=== PATIENT | female | born 1940 | race Caucasian/White ===

== ENCOUNTER → 2016-06-23 | Outpatient (CLI) | payer MEDICARE, BC | END | disposition home or self-care (01) | LOC: GMAJ 14:14 | PROVIDERS: ATTEND Family Medicine | DX: E53.8 Deficiency of other specified B group vitamins (principal) ==

== ENCOUNTER → 2016-06-26 | Outpatient (CLI) | payer MEDICARE, BC ==
--- NOTE | 2016-06-26 10:33 | CT ---
EXAM DESCRIPTION: Chest w/Contrast CLINICAL HISTORY: COPD COMPARISON: None. TECHNIQUE: Post IV contrasted multidetector CT imaging of the chest. Multiplanar reconstructions were provided. FINDINGS: Lungs and large airways: No evidence of mass, pulmonary nodule or emphysema on today's study. No interstitial lung disease noted. Pleura: Normal. No pleural effusion or thickening. Heart and pericardium: Heart size is normal. No pericardial effusion. Mediastium and brian: Normal. No lymphadenopathy by CT size criteria. Chest wall and lower neck: No significant finding. Vessels: There is evidence of atherosclerotic disease noted. The main pulmonary artery is prominent, but only measures 2.8 cm in diameter which is not considered enlarged. The ascending aorta measures 3.2 cm in diameter. Atherosclerotic disease is noted. The origins of the three great vessels demonstrate no evidence of significant narrowing. Bones: Osteopenia with multilevel fusion and vertebroplasty. Old healed sternal fracture. IMPRESSION: Today's exam demonstrates coronary artery disease. No evidence of emphysema or interstitial lung disease on today's study. Electronically signed by: Arnoldo Li MD 06/26/2016 10:32 AM [employer]
== END | disposition home or self-care (01) ==
LOC: CT 09:20
PROVIDERS: ATTEND Family Medicine
DX: J44.9 Chronic obstructive pulmonary disease, unspecified (principal)

== ENCOUNTER → 2016-11-19 | Outpatient (CLI) | payer MEDICARE, BC | LOC: GMA 16:42 | PROVIDERS: ATTEND Nurse Practitioner Family | DX: L03.90 Cellulitis, unspecified (principal) ==

== ENCOUNTER → 2016-11-23 | Outpatient (CLI) | payer MEDICARE, BC ==
--- NOTE | 2016-11-24 14:24 | MRI ---
EXAM DESCRIPTION: Cervical Spine CLINICAL HISTORY: CERVICAL MYELOPATHY neck pain and neck stiffness with cervical disorder with myelopathy COMPARISON: None Available. TECHNIQUE: MRI of the cervical spine is performed according to our usual protocol. FINDINGS: Reversal of the normal cervical lordosis centered at the C5-6 level is present with diffuse disc desiccation and mild modest disc space narrowing at this level and C6-7. The foramen magnum and craniocervical junction is unremarkable except for hypertrophic soft tissue degenerative changes surrounding the odontoid without evidence of stenosis at the foramen magnum. No evidence of brainstem or cervical cord mass or gliosis or syrinx is seen. Multilevel disc bulges are present, most prominent at C3-4, C4-5, and C5-6 with less prominent changes at C6-7 and C7-T1. Endplate reactive changes are present without evidence of a bony destructive process. No prevertebral or paraspinous masses or fluid collections are noted. No aggressive bony destruction is seen. C2-3: Disc desiccation with mild symmetric annular bulge and adequate spinal canal and left neural foramen with moderate narrowing of the right neural foramen from facet disease and uncinate process hypertrophy. C3-4: Symmetric mild annular bulge without lateralizing disc herniation with moderate bilateral foraminal stenosis and right greater than left facet arthropathy. C4-5: Disc desiccation with broad-based annular bulge, minimally more prominent on the left with moderate bilateral foraminal stenosis multifactoral including a annular bulge and right greater than left facet arthropathy and uncinate process hypertrophy. C5-6: Disc desiccation and narrowing with broad-based annular bulge and/or osteophyte complex with bilateral foraminal narrowing and borderline multifactoral stenosis with only mild symmetric facet arthropathy. No lateralizing herniation. C6-7: Degenerative disc narrowing and desiccation is present with broad-based mild bulge of the disc osteophyte complex with bilateral right slightly worse than left foraminal narrowing from uncinate process hypertrophy and mild facet arthropathy. The changes are very slightly more prominent on the right with slightly greater effacement of the right lateral recess than left. C7-T1: Disc desiccation and mild annular prominence with adequate spinal canal and bilateral moderate foraminal narrowing with mild facet arthropathy. IMPRESSION: 1. Multilevel disc degeneration and desiccation with multilevel annular bulges with adequate spinal canal throughout with reversal of normal lordosis centered at C5-6. 2. Diffuse foraminal stenosis on a multifactorial basis with relative sparing of the left C2-3 neural foramen and moderate involvement at the other levels bilaterally. 3. Adequate central canal throughout with borderline lower limits of normal canal size at C5-6. 4. Mild disc prominence to the left of midline at C4-5 and very slight a right far lateral uncinate process and/or disc prominence at C6-7 with the other levels demonstrating symmetric annular bulges. Electronically signed by: Shakeel Weinstein MD 11/24/2016 2:23 PM CDT
== END ==
LOC: MRI 11:22
PROVIDERS: ATTEND Psychiatry & Neurology Neurology
DX: M50.03 Cervical disc disorder with myelopathy, cervicothoracic region (principal); G80.3 Athetoid cerebral palsy; G61.81 Chronic inflammatory demyelinating polyneuritis; G93.2 Benign intracranial hypertension; J44.9 Chronic obstructive pulmonary disease, unspecified; M54.16 Radiculopathy, lumbar region; E11.40 Type 2 diabetes mellitus with diabetic neuropathy, unspecified

== ENCOUNTER → 2017-06-18 | Outpatient (CLI) | payer MEDICARE, BC ==
--- NOTE | 2017-06-18 15:05 | MRI ---
EXAM DESCRIPTION: Brain w/oContrast CLINICAL HISTORY: ATAXIC GAIT COMPARISON: Previous study March 02, 2016 TECHNIQUE: Non contrast MRI of the brain is performed according to our usual protocol including multiplanar multi sequence technique. FINDINGS: Sagittal T1 images show prominent gyral and sulcal fold pattern. Intact corpus callosum with normal pituitary gland. Normal T1 appearance of the vishnu and medulla and upper cervical cord. ADC mapping is negative. Diffusion-weighted imaging is negative for focal hyperintense brain parenchymal signal abnormality to suggest restricted diffusion. Axial fat sat T2 images show preservation of flow voids within the intracranial vessels. The globes appear intact. Mucosal thickening and frothy fluid is seen in the left sphenoid sinus consistent with sphenoid sinusitis. Other paranasal sinuses appear clear. No abnormal fluid signal is seen in the region of the tympanic cavities. However there is fluid signal in the mastoid regions consistent with mastoid effusions. Symmetrical internal auditory canals. T2 hyperintensities are seen in the vishnu and in the cerebral white matter with multifocal increased signal intensity in the basal ganglia consistent with old lacunar infarcts. Confluent microvascular ischemic changes are seen in the cerebral white matter bilaterally likely related to aging, diabetes or hypertension. Axial FLAIR images show white matter disease and old basal ganglial lacunes. Axial T1 images are negative for high signal intensity hemorrhagic lesion of the brain. No subdural hematoma. Generalized age-related cerebral volume loss is noted. Ventricles and sulci are prominent. Susceptibility weighted images are negative for evidence of old hemorrhage or pathologic brain parenchymal calcification. Incidental signal loss consistent with basal ganglial calcification is not unexpected for age. Compared to the previous study March 02, 2016, no change is evident. IMPRESSION: No acute intracranial pathologic process. Sphenoid sinusitis. Senescent brain with generalized cerebral and cerebellar atrophy. Extensive cerebral hemispheric chronic white matter ischemic changes. Old lacunar infarcts in the basal ganglia and vishnu. Electronically signed by: Lucius Chakraborty MD 06/18/2017 3:04 PM [facility]
== END ==
LOC: MRI 12:57
PROVIDERS: ATTEND Family Medicine
DX: R26.0 Ataxic gait (principal); J32.3 Chronic sphenoidal sinusitis

== ENCOUNTER → 2017-07-15 | Outpatient (CLI) | payer MEDICARE, BC ==
--- NOTE | 2017-07-15 17:34 | RAD ---
EXAM DESCRIPTION: Ankle,Left 3 Views CLINICAL HISTORY: 76 years, Female, PAIN IN LEFT ANKLE AND JOINTS OF LEFT FOOT COMPARISON: June 25, 2014 TECHNIQUE: AP/lateral/oblique of the ankle FINDINGS: Previous remote internal fixation of the medial malleolus with two screws and a side plate along the distal fibular and lateral malleolus is unchanged from prior study with the ankle mortise well-maintained. Mild degenerative changes in the region of the posterior malleolus on the lateral view are noted. No recurrent fracture or evidence of hardware failure is evident. IMPRESSION: 1. No acute abnormality of the left ankle. Electronically signed by: Shakeel Weinstein MD 07/15/2017 5:32 PM CDT
== END ==
LOC: RAD 07:56
PROVIDERS: ATTEND Orthopaedic Surgery
DX: M25.572 Pain in left ankle and joints of left foot (principal)

== ENCOUNTER → 2017-10-14 | Outpatient (CLI) | payer MEDICARE, BC | LOC: GMAJ 12:48 | PROVIDERS: ATTEND Family Medicine | DX: E53.8 Deficiency of other specified B group vitamins (principal) ==

== ENCOUNTER → 2018-06-03 | Outpatient (CLI) | payer MEDICARE, BC | LOC: GMAJ 13:12 | PROVIDERS: ATTEND Family Medicine | DX: E53.8 Deficiency of other specified B group vitamins (principal) ==

== ENCOUNTER → 2018-06-10 | Outpatient (CLI) | payer MEDICARE, BC ==
--- NOTE | 2018-06-12 15:45 | CT ---
Procedure: CT LUNG SCREENING Exam Date: 06/10/2018. Ordering Provider: Edwar Souza Clinical Indication: HISTORY OF TOBACCO. Current smoker. 20 pack years. This patient meets eligibility criteria for low-dose CT lung cancer screening. Comparison: Chest CT scan with contrast standard radiation dose 06/26/2016. Technique: Using a multislice scanner, sequential helical axial imaging was obtained in the thorax, 2.5 mm thickness, 2.5 mm separation, from the level of the thoracic inlet through the lung bases without IV contrast. A low dose protocol was utilized: CTDI: 1.75 mGy. 120. kVp. 45 mA. DLP: 62.73 mGy centimeters. 2D sagittal and coronal reconstructed images, 6.0 mm thickness, were obtained. This exam was performed according to our departmental dose optimization program which includes use of automated exposure control, adjustment of the mA and/or kV according to patient size and/or use of iterative reconstruction technique. Nodule measurements under 10 mm are given as mean value of 3 axes diameters. FINDINGS: Lungs and large airways: Small blebs in the upper lobes bilaterally. Stable 3 mm calcification right middle lobe. Bilateral perihilar calcifications. Bilateral pleural parenchymal scarring in the inferior right middle lobe and inferior lingula. No abnormal nodules or masses. No focal infiltrates. Pleura and space: 3 mm pleural-based nodule posterior right upper lobe. Bilateral focal pleural thickening. No effusion or pneumothorax bilaterally. Mediastinum and brian: evaluation limited by low dose technique and lack of IV contrast. No markedly enlarged lymph nodes or soft tissue masses. Heart and great vessels: Atherosclerotic calcification in the aortic arch, proximal brachiocephalic vessels, coronary arteries, and descending thoracic aorta. Chest wall, lower neck, axillae: Evaluation also limited by same factors as described above. Unremarkable. Upper abdomen: No free fluid or free air. Atherosclerotic calcification, aorta and branches to the abdominal organs. Gallbladder partially visualized. Osseous structures: Evaluation limited by low dose MIP technique. Previous fracture and deformity of the left posterior 11th rib. Spondylosis mid and lower thoracic spine vertebroplasty or augmentation T12, L1, L2. Bilateral posterior fusion construct T10 and T11. Prior fracture and deformity proximal sternum below the manubrium. Bilateral sternoclavicular arthrosis more on the right. IMPRESSION: 1. Bilateral abnormalities of the lung parenchyma and pleura but no abnormal nodules or masses. No focal infiltrates. Stable since the prior scan. [facility] Best Practice recommendations: Please see below for Lung RADS category and FOLLOW-UP.* *Lung RADS category Category 1 - No nodule or definitely benign nodules (probability of malignancy less than 1%). Follow-up: Continue annual screening with Low Dose Chest CT in 12 months. Electronically signed by: Froy Arias MD 06/12/2018 3:42 PM [facility]
== END ==
LOC: CT 13:08
PROVIDERS: ATTEND Family Medicine
DX: F17.210 Nicotine dependence, cigarettes, uncomplicated (principal); Z87.891 Personal history of nicotine dependence

== ENCOUNTER → 2018-12-28 | Outpatient (CLI) | payer MEDICARE, BC ==
--- NOTE | 2018-12-29 18:09 | RAD ---
EXAM DESCRIPTION: UGI: Rad-Fluoroscopy. CLINICAL HISTORY: NAUSEA WITH VOMITING, UNSPEC COMPARISON: None TECHNIQUE: The patient was unable to swallow the barium pill with water. The patient swallowed gas-producing granules, water, and heavy density barium under fluoroscopic visualization. The images were obtained with the patient standing and horizontal.. Patient drank medium density barium through a straw in the semi-prone position. 65 fluoroscopic cine loop images. 8 static fluoroscopic images. Total fluoroscopy time was 2.7 minutes.. DAP: 15.3 Gy-cm2.. FINDINGS: The swallowing mechanism shows no significant delay or premature filling of the hypopharynx. On the lateral view, there is minimal laryngeal penetration visualized. No aspiration. No coughing. No mass effect. Primary peristaltic wave visualized with secondary contractions distally. No mucosal abnormalities. No mass effect. Delayed opening of the gastroesophageal sphincter with minimal back up of contrast in the distal esophagus. Small sliding hiatal hernia. In the horizontal position, there is spontaneous gastroesophageal reflux. The level of reflux increased into the cervical esophagus with coughing. Evaluation of the stomach limited due to multiple levels of thoracic and lumbar kyphoplasty and posterior fusion hardware. No prominent intrinsic mucosal defect in the stomach, no mass effect. No gastroduodenal obstruction. No intrinsic mucosal defect in the duodenum and no mass effect. IMPRESSION: 1. No delay in swallowing. Minimal laryngeal penetration without coughing. No aspiration. No mass effect. 2. Delayed opening of the gastroesophageal sphincter with backup of contrast into the mid esophagus during swallowing. Small sliding hiatal hernia. Marked gastroesophageal reflux in the supine position elicited by coughing. Lesser degree of reflux with rolling in the horizontal position. Electronically signed by: Froy Arias MD 12/29/2018 6:07 PM CDT
== END ==
LOC: RAD 11:43
PROVIDERS: ATTEND Family Medicine
DX: K21.9 Gastro-esophageal reflux disease without esophagitis (principal); K22.2 Esophageal obstruction; K44.9 Diaphragmatic hernia without obstruction or gangrene; M81.0 Age-related osteoporosis without current pathological fracture

== ENCOUNTER → 2019-08-11 | Outpatient (CLI) | payer BC, MEDICARE | LOC: NC 12:16 | PROVIDERS: ATTEND Family Medicine | DX: J44.9 Chronic obstructive pulmonary disease, unspecified (principal); I11.9 Hypertensive heart disease without heart failure; E44.0 Moderate protein-calorie malnutrition; I25.10 Atherosclerotic heart disease of native coronary artery without angina pectoris; E78.5 Hyperlipidemia, unspecified; R63.0 Anorexia; E53.8 Deficiency of other specified B group vitamins; G62.9 Polyneuropathy, unspecified ==

== ENCOUNTER 2019-10-23 18:19 | Emergency (ER) | payer MEDICARE ==
[2019-10-23] MEDS ORDERED: SODIUM CHLORIDE 0.9% (FLUSH) 10 ML SYG IV PRN (18:26)
--- NOTE | 2019-10-23 18:51 | CT ---
EXAM: Head CLINICAL INDICATION: 71-year-old female with dysarthria and repeated falls. COMPARISON: MRI brain 06/18/2017. TECHNIQUE: CT brain without contrast. This exam was performed according to our departmental dose optimization program which includes use of automated exposure control, adjustment of the mA and/or kV according to patient size and/or use of iterative reconstruction technique. FINDINGS: Multifocal regions of patchy hypoattenuation are present in a subcortical and periventricular deep white matter distribution, nonspecific; however, most likely represent small vessel ischemic disease, age indeterminate. Subcentimeter hypoattenuation within the left basal ganglia stable in comparison to the previous examination compatible with sequela of prior infarction. The ventricles, sulci, and cisterns are symmetric and unremarkable. Slight prominence of the bifrontal extra-axial space raises the possibility of subdural hygroma versus volume loss. The stanley-white matter differentiation is preserved. There is no mass effect, midline shift, intra- or extra-axial fluid collection/acute hemorrhage. The osseous structures are unremarkable. The paranasal sinuses and mastoid air cells are clear. IMPRESSION: 1. No acute intracranial abnormalities. Nonspecific white matter change most likely small vessel ischemic disease, age indeterminate. 2. CT is insensitive for early evaluation of acute stroke. If there is clinical concern for acute ischemia, an MRI may be considered. Electronically signed by: Carissa Tran MD 10/23/2019 6:49 PM CDT
--- NOTE | 2019-10-23 18:58 | RAD ---
EXAM DESCRIPTION: Chest,1 View CLINICAL HISTORY: dysarthria and repeated falls. COMPARISON: CT lung screening dated June 10, 2018 TECHNIQUE: 1 view radiograph of the chest FINDINGS: Cardiac silhouette shows normal heart size. Pulmonary vascularity is within normal limits. Hyperinflated lung volumes, compatible COPD. Lungs show no confluent infiltrates. No pleural effusion. No pneumothorax. Postsurgical changes lower thoracic and lumbar spine. Vertebroplasty changes of T12-L2. IMPRESSION: 1. No acute cardiopulmonary process. 2. Changes of COPD. 3. Other findings as above. Electronically signed by: Kong Silva MD 10/23/2019 6:56 PM CDT
--- NOTE | 2019-10-23 20:47 | ED.PDOC ---
History of Present Illness - General Chief Complaint: Neuro Symptoms/Deficits Stated Complaint: weakness Time Seen by Provider: 10/23/19 18:26 Source: patient, RN notes reviewed, Vital Signs reviewed, family - Daughter Exam Limitations: no limitations - History of Present Illness Initial Comments: Patient is a 79-year-old white female who presents with generalized weakness and recurrent falling to the left side. Patient awoke with the symptoms this morning. They progressively worsened throughout the day. Last known well was at 10 PM last night. Patient denies any numbness. Timing/Duration: 24 hours Severity: moderate Improving Factors: nothing Worsening Factors: nothing Associated Symptoms: fatigue, trouble walking, weakness Allergies/Adverse Reactions: Allergies NO KNOWN ALLERGY Allergy (Unverified 05/02/12 09:50) Home Medications: Ambulatory Orders HYDROcodone 5MG/APAP 325MG [[place] 5/325] 1 tab PO Q4-6H PRN 05/02/12 Aspirin [Aspirin EC] 81 mg PO DAILY 03/03/14 Atorvastatin Calcium [Lipitor] 10 mg PO DAILY 03/03/14 Carvedilol 3.125 mg PO BID 03/03/14 Clopidogrel Bisulfate [Plavix] 75 mg PO DAILY 03/03/14 Escitalopram [Lexapro] 10 mg PO DAILY 03/03/14 Isosorbide Mononitrate [Isosorbide Mononitrate ER] 30 mg PO DAILY 03/03/14 Nitroglycerin [Nitrostat] 0.4 mg SL PRN PRN 03/03/14 Ranolazine [Ranexa] 500 mg PO BID 03/03/14 Review of Systems - Review of Systems Constitutional: States: see HPI, malaise, weakness. Denies: chills, fever EENTM: States: no symptoms reported. Denies: eye pain, blurred vision, double vision Respiratory: States: no symptoms reported. Denies: cough, short of breath, s tridor Cardiology: States: no symptoms reported. Denies: chest pain, palpitations, syncope Gastrointestinal/Abdominal: States: no symptoms reported. Denies: abdominal pain, diarrhea, nausea, vomiting Genitourinary: States: no symptoms reported Musculoskeletal: States: see HPI. Denies: back pain, neck pain Skin: States: no symptoms reported. Denies: change in color, rash Neurological: States: see HPI, weakness, other - Recurrent falls to the left Endocrine: States: no symptoms reported Hematologic/Lymphatic: States: no symptoms reported All other Systems: No Change from Baseline Past Medical History (General) - Patient Medical History Hx Seizures: No Hx Stroke: No Hx Asthma: No Hx of COPD: No Hx Cardiac Disorders: Yes Hx Congestive Heart Failure: No Hx Pacemaker: No Hx Hypertension: Yes Hx Diabetes: No Hx MRSA: No - Vaccination History Hx Tetanus, Diphtheria Vaccination: No Hx Influenza Vaccination: Yes - 2013 - Social History Hx Tobacco Use: No Hx Alcohol Use: No Hx Substance Use: No Hx Physical Abuse: No Hx Emotional Abuse: No - Activities of Daily Living Hospice Agency (if applicable):: None - Female History Patient is a Female of Child Bearing Age (10 -59 yrs old): No Patient : No Family Medical History - Family History Mother Family History: No Known Age (years): 92 Living Status: Cause of : chf Hx Family Asthma: No Hx Family Congestive Heart Failure: Yes Hx Family Hypertension: No Hx Cardiac Disease: Yes Hx Family Diabetes: No Hx Family Cancer: No Physical Exam - Physical Exam General Appearance: Alert, Anxious, Emaciated, Frail, Obvious distress, Unkempt, Well Hydrated Eye Exam: bilateral normal ENT Exam: normal ENT inspection, hearing grossly normal, pharynx normal Neck: non-tender, full range of motion, supple, normal inspection, trachea midline Respiratory: chest non-tender, lungs clear, normal breath sounds, no respiratory distress, no accessory muscle use Cardiovascular/Chest: normal peripheral pulses, regular rate, rhythm, no edema, no gallop, no JVD, no murmur Peripheral Pulses: radial,right: 2+, radial,left: 2+ Gastrointestinal/Abdominal: normal bowel sounds, non tender, soft, no organomegaly Back Exam: normal inspection, no CVA tenderness, no vertebral tenderness Extremities Exam: non-tender, normal range of motion Mental Status: alert, oriented x 3 ammunition specialist Exam: normal hearing, normal speech, PERRL Coordination/Gait: normal finger to nose, abnormal gait - Unsteady on her feet Motor/Sensory: no motor deficit, no sensory deficit, no pronator drift Skin Exam: normal color, warm/dry Progress - Results/Orders Results/Orders: 10/23/19 18:26 IV Care:Saline Lock per Protoc QSHIFT Telemetry .ONCE Sodium Chloride 0.9% (Flush) [Saline Flush Syringe] 10 ml IV PRN PRN 10/23/19 18:30 EKG STAT 10/23/19 20:34 CTA Head [CT] Stat 10/23/19 20:35 CTA Neck [CT] Stat Laboratory Results - last 24 hr 10/23/19 10/23/19 10/23/19 18:33 18:33 18:33 WBC 7.9 RBC 3.57 L Hgb 12.7 Hct 36.2 MCV 101.4 H MCH 35.6 H MCHC 35.1 RDW 14.0 Plt Count 193 MPV 8.4 Absolute Neuts (auto) 6.40 Absolute Lymphs (auto) 0.80 L Absolute Monos (auto) 0.60 Absolute Eos (auto) 0.00 Absolute Basos (auto) 0.00 Neutrophils % 81.4 H Lymphocytes % 10.1 L Monocytes % 8.0 Eosinophils % 0.1 L Basophils % 0.4 PT 10.1 INR 1.02 PTT (SP) 23.4 Sodium 136 Potassium 4.0 Chloride 98 L Carbon Dioxide 25 Anion Gap 17.0 BUN 16 Creatinine 1.04 BUN/Creatinine Ratio 15.4 POC Glucose Random Glucose 112 H Serum Osmolality 273.9 L Calcium 9.2 Total Bilirubin 1.0 AST 41 ALT 36 Alkaline Phosphatase 59 Creatine Kinase 48 CK-MB (CK-2) 5.2 H* CK-MB (CK-2) % Not Reportable Troponin I < 0.02 Serum Total Protein 7.4 Albumin 3.8 Globulin 3.6 H Albumin/Globulin Ratio 1.1 10/23/19 18:35 WBC RBC Hgb Hct MCV MCH MCHC RDW Plt Count MPV Absolute Neuts (auto) Absolute Lymphs (auto) Absolute Monos (auto) Absolute Eos (auto) Absolute Basos (auto) Neutrophils % Lymphocytes % Monocytes % Eosinophils % Basophils % PT INR PTT (SP) Sodium Potassium Chloride Carbon Dioxide Anion Gap BUN Creatinine BUN/Creatinine Ratio POC Glucose 110 H Random Glucose Serum Osmolality Calcium Total Bilirubin AST ALT Alkaline Phosphatase Creatine Kinase CK-MB (CK-2) CK-MB (CK-2) % Troponin I Serum Total Protein Albumin Globulin Albumin/Globulin Ratio EXAM DESCRIPTION: Chest,1 View CLINICAL HISTORY: dysarthria and repeated falls. COMPARISON: CT lung screening dated June 10, 2018 TECHNIQUE: 1 view radiograph of the chest FINDINGS: Cardiac silhouette shows normal heart size. Pulmonary vascularity is within normal limits. Hyperinflated lung volumes, compatible COPD. Lungs show no confluent infiltrates. No pleural effusion. No pneumothorax. Postsurgical changes lower thoracic and lumbar spine. Vertebroplasty changes of T12-L2. IMPRESSION: 1. No acute cardiopulmonary process. 2. Changes of COPD. 3. Other findings as above. Electronically signed by: Kong Silav MD 10/23/2019 6:56 PM CDT EXAM: Head CLINICAL INDICATION: 71-year-old female with dysarthria and repeated falls. COMPARISON: MRI brain 06/18/2017. TECHNIQUE: CT brain without contrast. This exam was performed according to our departmental dose optimization program which includes use of automated exposure control, adjustment of the mA and/or kV according to patient size and/or use of iterative reconstruction technique. FINDINGS: Multifocal regions of patchy hypoattenuation are present in a subcortical and periventricular deep white matter distribution, nonspecific; however, most likely represent small vessel ischemic disease, age indeterminate. Subcentimeter hypoattenuation within the left basal ganglia stable in comparison to the previous examination compatible with sequela of prior infarction. The ventricles, sulci, and cisterns are symmetric and unremarkable. Slight prominence of the bifrontal extra-axial space raises the possibility of subdural hygroma versus volume loss. The stanley-white matter differentiation is preserved. There is no mass effect, midline shift, intra- or extra-axial fluid collection/acute hemorrhage. The osseous structures are unremarkable. The paranasal sinuses and mastoid air cells are clear. IMPRESSION: 1. No acute intracranial abnormalities. Nonspecific white matter change most likely small vessel ischemic disease, age indeterminate. 2. CT is insensitive for early evaluation of acute stroke. If there is clinical concern for acute ischemia, an MRI may be considered. Electronically signed by: Carissa Tran MD 10/23/2019 6:49 PM CDT Vital Signs 10/23/19 10/23/19 10/23/19 18:22 18:40 19:13 Temperature 96.8 F L 96.8 F L Pulse Rate 81 Pulse Rate [ 74 81 74 brachial] Respiratory 16 16 16 Rate Blood Pressure 113/65 80/50 [Right Arm] O2 Sat by Pulse 93 L 94 L Oximetry EKG performed 23 October 2019 at 1825 hrs.: Normal sinus rhythm at 76 bpm, left axis deviation, anterior septal infarct, age undetermined, abnormal EKG. No comparison EKG available at this time. Stroke Information - Onset of Symptoms Symptoms of Stroke: Loss of Equilibrium, Difficulty balancing Stroke Onset of Symptoms Date: 10/22/19 Stroke Onset of Symptoms Time: 22:00 - Contraindications Antithrombotic Contraindication: Treatment not indicated t-PA Contraindication: Drug Tx Not Indicated Departure - Departure Clinical Impression: CVA (cerebral vascular accident) Qualifiers: CVA mechanism: unspecified Qualified Code(s): I63.9 - Cerebral infarction, unspecified COPD (chronic obstructive pulmonary disease) Qualifiers: COPD type: chronic bronchitis Chronic bronchitis type: simple Qualified Code(s): J41.0 - Simple chronic bronchitis Time of Disposition: 21:09 Disposition: Transfer to Hospital Condition: Fair Departure Forms: ED Discharge - Pt. Copy, Patient Portal Self Enrollment Referrals: Edwar Souza MD [Primary Care Provider] - 1-2 Weeks Home Medications: Ambulatory Orders HYDROcodone 5MG/APAP 325MG [[place] 5/325] 1 tab PO Q4-6H PRN 05/02/12 Aspirin [Aspirin EC] 81 mg PO DAILY 03/03/14 Atorvastatin Calcium [Lipitor] 10 mg PO DAILY 03/03/14 Carvedilol 3.125 mg PO BID 03/03/14 Clopidogrel Bisulfate [Plavix] 75 mg PO DAILY 03/03/14 Escitalopram [Lexapro] 10 mg PO DAILY 03/03/14 Isosorbide Mononitrate [Isosorbide Mononitrate ER] 30 mg PO DAILY 03/03/14 Nitroglycerin [Nitrostat] 0.4 mg SL PRN PRN 03/03/14 Ranolazine [Ranexa] 500 mg PO BID 03/03/14 Critical Care Note - Critical Care Note Total Time (mins): 45
--- NOTE | 2019-10-23 21:36 | CT ---
EXAM DESCRIPTION: CTA Head CLINICAL HISTORY: 79 years Female weakness COMPARISON: None TECHNIQUE: Images were obtained in axial, sagittal, and coronal planes. Intravenous contrast was administered. 3-D MIP imaging was performed. This exam was performed according to our departmental dose-optimization program which includes use of Automated Exposure Control, adjustment of the mA and/or kV according to patient size and/or use of iterative reconstruction technique. FINDINGS: Patent carotid siphons bilaterally. Patent anterior and middle cerebral arteries bilaterally. Patent basilar and posterior cerebral arteries bilaterally. Patent vertebral arteries bilaterally at level of base of skull. No evidence for aneurysm, thrombus, or hemodynamically significant (greater than 50%) stenosis. Moderate cerebral volume loss. Marked periventricular decreased attenuation consistent with more remote microvascular ischemic change. No vascular malformation. No abnormal enhancement involving the brain parenchyma. Filling defects within the tentorium bilaterally likely injection artifact. IMPRESSION: Intracerebral vasculature within normal limits. Electronically signed by: Iqra Alfaro MD 10/23/2019 9:34 PM CDT
--- NOTE | 2019-10-23 21:45 | CT ---
EXAM DESCRIPTION: CTA Neck CLINICAL HISTORY: 79 years Female weakness COMPARISON: CT angiogram of the brain performed on the same day. TECHNIQUE: Images were obtained in axial, sagittal, and coronal planes. Intravenous contrast was administered. 3-D MIP imaging was performed. This exam was performed according to our departmental dose-optimization program which includes use of Automated Exposure Control, adjustment of the mA and/or kV according to patient size and/or use of iterative reconstruction technique. FINDINGS: Marked calcified plaque bifurcations and proximal internal carotid arteries bilaterally. No hemodynamically significant or greater than 50% narrowing involving the bifurcations or proximal internal carotid arteries bilaterally according to the NASCET criteria. Patent right common, internal, and external carotid arteries. Patent right vertebral artery. Tortuosity right vertebral and internal carotid arteries. No evidence for dissection. Patent left common, internal, and external carotid arteries. Patent left vertebral artery. Tortuosity left vertebral and internal carotid arteries. No evidence for dissection. Patent great vessels at level of origin from aortic arch. No acute osseous abnormality. Reversal normal cervical lordosis indicating muscle spasm. Moderately severe multilevel osteoarthritic change most pronounced C5-6 and C6-7 levels. Chronic changes lung apices bilaterally. IMPRESSION: Marked calcified plaque bifurcations and proximal internal carotid arteries bilaterally. Associated marked tortuosity. No hemodynamically significant or greater than 50% narrowing involving the proximal internal carotid arteries bilaterally. Electronically signed by: Iqra Alfaro MD 10/23/2019 9:44 PM CDT
[2019-10-23 22:15] VITALS: BP 113/51; TEMP 97.3; O2SAT 97
== END 2019-10-23 21:45 | disposition short-term general hospital (02) ==
LOC: ER 18:19
DX: I63.9 Cerebral infarction, unspecified (principal); J41.0 Simple chronic bronchitis; I10 Essential (primary) hypertension; Z79.82 Long term (current) use of aspirin; Z79.899 Other long term (current) drug therapy
CPT/HCPCS: 36415; 70450; 70496; 70498; 71045; 80053; 82550; 82553; 82948; 84484; 85025; 85610; 85730; 93005; A4216

== ENCOUNTER → 2019-12-08 | Outpatient (CLI) | payer MEDICARE | LOC: NC 11:24 | PROVIDERS: ATTEND Family Medicine | DX: I10 Essential (primary) hypertension (principal); I25.10 Atherosclerotic heart disease of native coronary artery without angina pectoris; J44.9 Chronic obstructive pulmonary disease, unspecified; M10.9 Gout, unspecified ==

== ENCOUNTER → 2020-04-11 | Outpatient (CLI) | payer MEDICARE | LOC: BFHH 11:36 | PROVIDERS: ATTEND Family Medicine | DX: I10 Essential (primary) hypertension (principal); J44.9 Chronic obstructive pulmonary disease, unspecified; R30.0 Dysuria ==